=== PATIENT | female | born 1975 | race Caucasian/White ===

== ENCOUNTER 2021-08-18 23:44 | Observation (INO) | payer BC ==
[2021-08-19] MEDS ORDERED: NA CHLORIDE 0.9% 1,000 ML ONE (00:07)
[2021-08-19] MEDS ORDERED: MORPHINE 4 MG/ML SYR ONE (00:07)
[2021-08-19] MEDS ORDERED: ONDANSETRON 4 MG/2 ML VIAL ONE ×3 (00:07→07:10)
[2021-08-19] MEDS ORDERED: PIPERACIL/TAZO 3.375 GM VIAL IV ONE ×2 (00:32→08:39)
[2021-08-19] MEDS ORDERED: NA CHLORIDE 0.9% 100 ML ONE ×2 (00:33→08:39)
[2021-08-19 00:35] LABS: Absolute Lymphocytes (CBC) 4.3 K/uL (0.7-4.9); Hematocrit 36.6 % (36.0-45.0); Lymphocytes % 36.8 % (15.3-44.8); MPV 7.1 fL (7.6-11.3); RBC Red Blood Cell Count 4.53 M/uL (3.86-4.86)
[2021-08-19 00:44] LABS: Urine Specific Gravity/Preg 1.025 (1.005-1.030)
[2021-08-19 00:45] LABS: Albumin 3.5 g/dL (3.4-5.0); Bilirubin Total 0.3 mg/dL (0.2-1.0); Potassium 3.4 mmol/L (3.5-5.1); Protein, Total 7.3 g/dL (6.4-8.2)
[2021-08-19 00:48] LABS: Urine Bacteria <20 /HPF (<20); Urine RBC <5 /HPF (NONE SEEN)
[2021-08-19] MEDS ORDERED: HYDROMORPHONE HCL 0.5 MG/0.5 ML INJ ONE (00:53)
--- OUTSIDE RECORDS SUMMARY | 2021-08-19 01:02 | XMS REPORT | Continuity of Care Document ---
:1975 Author Organization [facility] t Address [address] [place] [address] [address]. [address] [place] [address] Care Team Providers Name Role Phone PCP, DOES NOT HAVE A Primary Care Physician Unavailable Jef Guerrier Attending Clinician Unavailable ANH Attending Clinician Unavailable Tato THOMPSON, Cam Attending Clinician Payers Payer Name Policy Type Policy Number Effective Date Expiration Date Sandra johnson [facility] [employer] [id number] 2016 00:00:00 SELECT Problems Condition Condition Condition Status Onset Resolution Last Treating Co mments Source Name Details Category Date Date Treatment Clinician Date No known No known Disease Unive rs active active ity of problems problems [facility] Allergies, Adverse Reactions, Alerts Allergy Allergy Status Severity Reaction(s) Onset Inactive Treating Comm ents Source Name Type Date Date Clinician NO KNOWN Drug Active Univers ALLERGIE Class ity of S [facility] Social History Social Habit Start Date Stop Date Quantity Comments Source History SDOH University o f Alcohol Frequency [facility] History SDOH University o f Alcohol Std [place] [facility] History SDOH University o f Alcohol Binge [facility] Exposure to 2021-07-27 2021-08-06 Not sure University of SARS-CoV-2 00:00:00 13:40:00 [facility] (event) [facility] Alcohol intake 2021-08-06 2021-08-06 Current drinker Unive rsity of 00:00:00 00:00:00 of alcohol [facility] (finding) Branch Alcohol Comment 2021-07-29 2021-07-29 occational Universit y of 00:00:00 00:00:00 [facility] Tobacco use and 2019-11-27 2019-11-27 Never used Universit y of exposure 00:00:00 00:00:00 [facility] Sex Ass[birth year] At [birth year] Universit y of 00:00:00 00:00:00 [facility] Smoking Status Start Date Stop Date Source Former smoker 2019-11-27 00:00:00 2019-11-27 00:00:00 Universi ty of [facility] Medications Ordered Filled Start Stop Current Ordering Indication Dosage Frequency Signature Comments Components Source Medication Medication Date Date Medication? Clinician (SIG) Name Name citalopram Yes 40mg Take 40 mg U nivers (CELEXA) 40 5-25 by mouth ity of mg tablet 15:56: daily. [address] Dexlansopra Yes Take by Un ronit zole 5-25 mouth. ity of (DEXILANT) 15:56: [place] 30 mg 42 Medical capsule Branch Levothyroxi Yes Take by Un ronit ne 5-25 mouth. ity of (TIROSINT) 15:56: [place] 125 mcg 42 Medical capsule Branch phentermine Yes 37.5mg Take 37.5 Univers 37.5 mg 5-25 mg by ity of tablet 15:56: mouth [place] 42 daily with Medical breakfast. Branch citalopram Yes 40mg Take 40 mg U nivers (CELEXA) 40 5-25 by mouth ity of mg tablet 15:56: daily. [address] Branch Dexlansopra Yes Take by Un ronit zole 5-25 mouth. ity of (DEXILANT) 15:56: [place] 30 mg 42 Medical capsule Branch Levothyroxi Yes Take by Un ronit ne 5-25 mouth. ity of (TIROSINT) 15:56: [place] 125 mcg 42 Medical capsule Branch phentermine Yes 37.5mg Take 37.5 Univers 37.5 mg 5-25 mg by ity of tablet 15:56: mouth [place] 42 daily with Medical breakfast. Branch medroxyPROG Yes [id number] 20mg Take 2 Univers ESTERone 5-25 tablets by ity o f (PROVERA) 00:00: mouth [place] 10 mg 00 daily. Medical tablet Branch medroxyPROG Yes [id number] 20mg Take 2 Univers ESTERone 5-25 tablets by ity o f (PROVERA) 00:00: mouth [place] 10 mg 00 daily. Medical tablet Branch miSOPROStoL 2021- No [id number] Take one Univers 200 mcg 5-25 08-06 tablet ity of tablet 00:00: 00:00 night [place] 00 :00 before Medical procedure, Branch then take one tablet morning of procedure miSOPROStoL 2021- No [id number] Take one Univers 200 mcg 5-25 08-06 tablet ity of tablet 00:00: 00:00 night [place] 00 :00 before Medical procedure, Branch then take one tablet morning of procedure Tirosint Tirosint Yes Sreekanth 1 capsule Common 3-02 [facility] 00:00: morning on an empty [facility] Vitamin D3 Vitamin D3 Yes Sreekanth 1 capsule Common 2-20 [facility] 00:00: [facility] Citalopram Citalopram Yes Sreekanth 1 tablet Common Hydrobromid Hydrobromid [facility] Spirit e e [facility] Immunizations Ordered Immunization Filled Immunization Date Status Commen ts Source Name Name Savannah Nuñez 2018-11-14 Completed [facility] 00:00:00 [facility] PNEUMAVAX 23 PNEUMAVAX 23 2018-04-04 Completed Common Spi rit 00:00:00 [facility] Vital Signs Vital Name Observation Time Observation Value Comments Source Systolic blood 2021-08-06 19:04:00 122 mm[Hg] Univer sity [facility] Diastolic blood 2021-08-06 19:04:00 82 mm[Hg] [facility] Heart rate 2021-08-06 19:04:00 93 /min [facility] Body temperature 2021-08-06 19:04:00 37.06 [facility] Body height 2021-08-06 19:04:00 157.5 cm [facility] Body weight 2021-08-06 19:04:00 73.936 kg [facility] BMI 2021-08-06 19:04:00 29.81 kg/m2 [facility] Procedures Procedure Date / Time Performed Performing Clinician Kina e POCT TEST 2021-08-06 00:00:00 Eunice Godwin [facility] Encounters Start End Encounter Admission Attending Care Care Encounter Source Date/Time Date/Time Type Type Clinicians Facility Department ID 2021-04-20 Outpatient Guerrier, STLMLC STLMLC Common 13:33:01 Sreekanth [id number] [facility] 2021-04-01 Outpatient Guerrier, STLMLC STLMLC [id number] Common 13:21:09 Sreekanth [id number] [facility] 2021-04-01 Outpatient Guerrier, STLMLC STLMLC Common 13:13:19 Sreekanth [id number] [facility] 2021-04-01 Outpatient Guerrier, STLMLC STLMLC Common 13:10:39 Sreekanth [id number] [facility] 2021-04-01 Outpatient Guerrier, STLMLC STLMLC [id number] Common 12:58:05 Sreekanth [id number] [facility] 2021-04-01 Outpatient Guerrier, STLMLC STLMLC Common 12:45:33 Sreekanth [id number] [facility] 2021-04-01 Outpatient Guerrier, STLMLC STLMLC [id number] Common 11:35:56 Sreekanth [id number] [facility] 2021-04-01 Outpatient Guerrier, STLMLC STLMLC [id number] Common 11:16:45 Sreekanth [id number] [facility] 2021-04-01 Outpatient Guerrier, STLMLC STLMLC [id number] Common 11:16:16 Sreekanth [id number] [facility] 2021-04-01 Outpatient Guerrier, STLMLC STLMLC [id number] Common 11:15:22 Sreekanth [id number] [facility] 2021-04-01 Outpatient Guerrier, STLMLC STLMLC [id number] Common 11:14:55 [facility] [id number] [facility] 2021-04-01 Outpatient Guerrier, STLMLC STLMLC [id number] Common 11:04:45 [facility] [id number] [facility] 2021-08-18 2021-08-[address] [facility] [id number] Univers 14:40:49 [facility]40[facility] 2021-08-[facility] 2021-08-06 Office Eunice Godwin [facility] [id number] Univers 13:45:00 14:51:14 Visit Earl HERNANDEZ [id number] aria Mckeon [id number] Akash HEARDIO [id number] [address] 2021-07-29 2021-07-[address] [facility] [id number] Univers 16:00:00 16:33:[facility] 2021-07-29 2021-07-29 ambulatory STLMLC STLMLC [id number] Common 00:00:00 00:00:00 [facility] 2021-07-20 2021-07-20 ambulatory STLMLC STLMLC [id number] Common 00:00:00 00:00:00 [facility] 2021-05-19 2021-05-19 ambulatory STLMLC STLMLC [id number] Common 00:00:00 00:00:00 [facility] 2021-04-21 2021-04-21 ambulatory STLMLC STLMLC [id number] Common 00:00:00 00:00:00 [facility] 2021-01-19 2021-01-19 ambulatory STLMLC STLMLC [id number] Common 00:00:00 00:00:00 [facility] 2020-12-19 2020-12-19 Outpatient STLMLC STLMLC [id number] Common 00:00:00 00:00:00 [facility] 2020-08-19 2020-08-19 Outpatient STLMLC STLMLC [id number] Common 00:00:00 00:00:00 [facility] 2020-08-07 2020-08-07 Outpatient STLMLC STLMLC [id number] Common 00:00:00 00:00:00 [facility] 2020-08-05 2020-08-05 Outpatient STLMLC STLMLC [id number] Common 00:00:00 00:00:00 [facility] 2020-07-04 2020-07-04 Outpatient STLMLC STLMLC [id number] Common 00:00:00 00:00:00 [facility] 2020-07-03 2020-07-03 Outpatient STLMLC STLMLC [id number] Common 00:00:00 00:00:00 [facility] 2020 2020 Outpatient STLMLC STLMLC [id number] Common 00:00:00 00:00:00 [facility] 2020-05-22 2020-05-22 Outpatient STLMLC STLMLC [id number] Common 00:00:00 00:00:00 [facility] 2019-10-11 2019-10-11 [facility] [id number] Common 16:39:00 16:39:00 [facility] [address] [facility] 2019-08-28 2019-08-28 [facility] [id number] Common 10:23:00 10:23:[address] [facility] 2019-08-20 2019-08-20 [facility] [id number] Common 11:12:00 11:12:[address] [facility] 2019-06-07 2019-06-07 [facility] [id number] Common 15:15:00 15:15:[address] [facility] 2019-05-28 2019-05-28 [facility] [id number] Common 08:10:00 08:10:[address] [facility] 2019-05-24 2019-05-24 [facility] [id number] Common 08:20:00 08:20:[address] [facility] 2019-05-23 2019-05-23 [facility] [id number] Common 13:26:00 13:26:[address] [facility] 2019-05-07 2019-05-07 [facility] [id number] Common 16:15:00 16:15:[address] [facility] 2019-04-11 2019-04-11 [facility] [id number] Common 14:51:00 14:51:[address] [facility] 2019-04-10 2019-04-10 [facility] [id number] Common 16:00:00 16:00:[address] [facility] 2019-01-31 2019-01-31 [facility] [id number] Common 10:10:00 10:10:[address] [facility] 2019-01-22 2019-01-22 [facility] [id number] Common 14:00:00 14:00:[address] [facility] 2019-01-16 2019-01-16 [facility] [id number] Common 10:08:00 10:08:[address] [facility] 2019-01-15 2019-01-15 [facility] [id number] Common 09:45:00 09:45:[address] [facility] 2019-01-09 2019-01-09 [facility] [id number] Common 08:40:00 08:40:[address] Family - [facility] 2018-11-14 2018-11-14 [facility] [id number] Common 15:15:00 15:15:[address] [facility] 2018-10-17 2018-10-17 [facility] [id number] Common 14:00:00 14:00:[address] [facility] 2018-09-15 2018-09-15 [facility] [id number] Common 10:30:00 10:30:[address] [facility] 2018-06-26 2018-06-26 [facility] [id number] Common 15:55:00 15:55:[address] [facility] 2018-06-26 2018-06-26 [facility] [id number] Common 13:45:00 13:45:[address] [facility] 2018-06-21 2018-06-21 [facility] [id number] Common 09:55:00 09:55:[address] [facility] 2018-06-01 2018-06-01 [facility] [id number] Common 08:40:00 08:40:[address] [facility] 2018-05-24 2018-05-24 [facility] [id number] Common 13:15:00 13:15:[address] [facility] 2018-04-26 2018-04-26 [facility] [id number] Common 14:15:00 14:15:[address] [facility] 2018-04-26 2018-04-26 [facility] [id number] Common 13:15:00 13:15:[address] [facility] 2018-04-04 2018-04-04 [facility] [id number] Common 15:45:00 15:45:[address] [facility] 2018-02-23 2018-02-23 [facility] [id number] Common 07:39:00 07:39:[address] [facility] 2017-12-01 2017-12-01 [facility] [id number] Common 15:45:00 15:45:[address] [facility] 2017-11-04 2017-11-04 [facility] [id number] Common 10:00:00 10:00:[address] [facility] 2017-10-05 2017-10-05 [facility] [id number] Common 15:45:00 15:45:[address] [facility] 2017-09-29 2017-09-29 [facility] [id number] Common 10:59:00 10:59:[address] [facility] 2017-09-06 2017-09-06 [facility] [id number] Common 15:15:00 15:15:[address] [facility] 2017-08-18 2017-08-18 [facility] [id number] Common 09:45:00 09:45:[address] [facility] Results Test Description Test Time Test Comments Results Result Comments Source POCT TEST 2021-08-06 19:02:00 Test Item Value Reference Range Interpretation Comme nts POCT PREG (test code = 1605) Negative On board controls acceptable with C Line (test code = 3574) Yes POCT PREG LOT # (test code = 3575) POCT PREG TEST DATE (test code = 3576) [id number] 19:02:00 Test Item Value Reference Range Interpretation Comments POCT PREG (test code = 1605) Negative On board controls acceptable with C Yes Line (test code = 3574) POCT PREG LOT # (test code = 3575) POCT PREG TEST DATE (test code = 3576) [facility] [place]
--- NOTE | 2021-08-19 01:14 | EDPHYS ---
Physician Documentation [facility] Name: Kamala Peace Age: 46 yrs Sex: Female : 1975 Arrival Date: 08/18/2021 Time: 23:47 Bed 19 Private MD: ED Physician Ye Mantilla HPI: 08/19 00:11 This 46 yrs old Female presents to ER via Ambulatory with complaints of Flank juaquin Pain. 00:11 The patient complains of pain in the left mid back. 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 - Social history:: Smoking status: Patient denies any tobacco usage or history of. Patient/guardian denies using alcohol. - Family history:: not pertinent. ROS: 08/19 00:11 Constitutional: Negative for fever, chills, and weight loss, Eyes: Negative for injury, juaquin pain, redness, and discharge, ENT: Negative for injury, pain, and discharge, Neck: Negative for injury, pain, and swelling, Cardiovascular: Negative for chest pain, palpitations, and edema, Respiratory: Negative for shortness of breath, cough, wheezing, and pleuritic chest pain, Back: Negative for injury and pain, : Negative for injury, bleeding, discharge, and swelling, MS/Extremity: Negative for injury and deformity, Skin: Negative for injury, rash, and discoloration, Neuro: Negative for headache, weakness, numbness, tingling, and seizure, Psych: Negative for depression, anxiety, suicide ideation, homicidal ideation, and hallucinations, Allergy/Immunology: Negative for hives, rash, and allergies, Endocrine: Negative for neck swelling, polydipsia, polyuria, polyphagia, and marked weight changes, Hematologic/Lymphatic: Negative for swollen nodes, abnormal bleeding, and unusual bruising. Abdomen/GI: Positive for abdominal pain, of the right upper quadrant. Exam: 00:11 Constitutional: This is a well developed, well nourished patient who is awake, alert, juaquin and in no acute distress. Head/Face: Normocephalic, atraumatic. Eyes: Pupils equal round and reactive to light, extra-ocular motions intact. Lids and lashes normal. Conjunctiva and sclera are non-icteric and not injected. Cornea within normal limits. Periorbital areas with no swelling, redness, or edema. ENT: Nares patent. No nasal discharge, no septal abnormalities noted. Tympanic membranes are normal and external auditory canals are clear. Oropharynx with no redness, swelling, or masses, exudates, or evidence of obstruction, uvula midline. Mucous membranes moist. Neck: Trachea midline, no thyromegaly or masses palpated, and no cervical lymphadenopathy. Supple, full range of motion without nuchal rigidity, or vertebral point tenderness. No Meningismus. Chest/axilla: Normal chest wall appearance and motion. Nontender with no deformity. No lesions are appreciated. Cardiovascular: Regular rate and rhythm with a normal S1 and S2. No gallops, murmurs, or rubs. Normal PMI, no JVD. No pulse deficits. Respiratory: Lungs have equal breath sounds bilaterally, clear to auscultation and percussion. No rales, rhonchi or wheezes noted. No increased work of breathing, no retractions or nasal flaring. Back: No spinal tenderness. No costovertebral tenderness. Full range of motion. Female : Normal external genitalia. Skin: Warm, dry with normal turgor. Normal color with no rashes, no lesions, and no evidence of cellulitis. MS/ Extremity: Pulses equal, no cyanosis. Neurovascular intact. Full, normal range of motion. Neuro: Awake and alert, GCS 15, oriented to person, place, time, and situation. Cranial nerves II-XII grossly intact. Motor strength 5/5 in all extremities. Sensory grossly intact. Cerebellar exam normal. Normal gait. Psych: Awake, alert, with orientation to person, place and time. Behavior, mood, and affect are within normal limits. 00:11 Abdomen/GI: Inspection: abdomen appears normal, Bowel sounds: normal, Palpation: abdomen is soft and non-tender. 00:11 Abdomen/GI: Palpation: moderate abdominal tenderness, in the right upper quadrant, Liver: no appreciated palpable abnormalities, Hernia: not appreciated. Vital Signs: 08/18 23:53 BP 113 / 87; Pulse 83; Resp 18; Temp 97.6(TE); Pulse Ox 100% on R/A; Weight 72.57 kg; ld1 Height 5 ft. 2 in. (157.48 cm); Pain 10; 08/19 00:56 BP 140 / 88; Pulse 92; Resp 17; Pulse Ox 100% on R/A; kd3 02:53 BP 111 / 77; Pulse 78; Resp 18; Pulse Ox 97% on R/A; kd3 04:21 BP 120 / 88; Pulse 85; Resp 17; Pulse Ox 100% ; kd3 06:30 BP 108 / 78; Pulse 69; Resp 17; Pulse Ox 98% on R/A; kd3 08/18 23:53 Body Mass Index 29.26 (72.57 kg, 157.48 cm) ld1 MDM: 00:02 Patient medically screened. juaquin 00:14 Differential diagnosis: diverticulitis, pancreatitis, appendicitis, bowel obstruction, juaquin cholecystitis, Cholelithiasis, diverticulitis, gastritis, gastroesophageal reflux disease, Hepatitis, pancreatitis, Peptic Ulcer Disease, Peritonitis, Ureterolithiasis, urinary tract infection. Data reviewed: vital signs, nurses notes, lab test result(s), drug level(s), electrolytes, hepatic panel, urinalysis, radiologic studies, ultrasound. Data interpreted: contact center associate: rate is 83 beats/min, rhythm is regular, Pulse oximetry: on room air is 100 %. Test interpretation: by ED physician or midlevel provider:. Counseling: I had a detailed discussion with the patient and/or guardian regarding: the historical points, exam findings, and any diagnostic results supporting the discharge/admit diagnosis, lab results, radiology results, the need for further work-up and treatment in the hospital. 08/18 23:56 Order name: CBC with Diff; Complete Time: : ld1 08/18 23:56 Order name: CMP; Complete Time: :08/18 23:56 Order name: Lipase; Complete Time: :08/18 23:56 Order name: Urine Microscopic Only; Complete Time: : ld1 08/19 00:33 Order name: Urine --Ancillary (enter results); Complete Time: : 08/19 00:51 Order name: Urine Culture EDAR 08/19 00:03 Order name: US Abdomen Limited [facility] 08/18 23:56 Order name: IV Saline Lock; Complete Time: 00:02 ld1 08/18 23:56 Order name: Labs collected and sent; Complete Time: 00:02 ld1 08/18 23:56 Order name: Urine Dipstick-Ancillary (obtain specimen); Complete Time: 00:37 ld1 Administered Medications: 00:02 Drug: NS 0.9% 1000 ml Route: IV; Rate: 1 bolus; Site: left antecubital; ld1 02:54 Follow up: Response: No adverse reaction; IV Status: Completed infusion kd3 00:02 Drug: Zofran (Ondansetron) 4 mg Route: IVP; Site: left antecubital; ld1 02:54 Follow up: Response: No adverse reaction kd3 00:02 Drug: morphine 4 mg Route: IVP; Infused Over: 4 mins; Site: left antecubital; ld1 02:54 Follow up: Response: Pain is decreased kd3 00:37 Drug: Zosyn (piperacillin-tazobactam) 3.375 grams Route: IVPB; Infused Over: 60 mins; kd3 Site: left antecubital; 02:54 Follow up: Response: No adverse reaction; IV Status: Completed infusion kd3 01:10 CANCELLED (Duplicate Order): Zofran (Ondansetron) 4 mg IVP once; over 2 minutes kd3 01:10 Drug: Zofran (Ondansetron) 4 mg Route: IVP; Site: left antecubital; kd3 02:54 Follow up: Response: No adverse reaction kd3 01:10 Drug: Dilaudid (HYDROmorphone) 1 mg Route: IVP; Site: left antecubital; kd3 02:55 Follow up: Response: No adverse reaction; Pain is decreased kd3 01:11 CANCELLED (Duplicate Order): Dilaudid (HYDROmorphone) 1 mg IVP once kd3 01:53 Drug: Lactated Ringers Solution 1000 ml Route: IV; Rate: 150 ml/hr; Site: left kd3 antecubital; 02:54 Follow up: Response: No adverse reaction; IV Status: Completed infusion kd3 Disposition Summary: 08/19/21 01:13 Hospitalization Ordered Hospitalization Status: Observation [facility] Provider: Domo Hanks cha Condition: Fair juaquin Problem: new juaquin Symptoms: have improved juaquin Bed/Room Type: Standard juaquin [facility]08/19/21 11:01[facility] bd Room Assignment: 270-(08/19/21 11:01) bd Diagnosis - Epigastric abdominal tenderness juaquin - Other cholelithiasis with obstruction juaquin Forms: - Medication Reconciliation Form juaquin - SBAR form juaquin 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 juaquin kd3 01:11 01:09 Dilaudid (HYDROmorphone) 1 mg IVP once ordered. juaquin kd3 01:21 01:13 Telemetry/MedSurg (observation) juaquin cg 01:21 01:13 juaquin cg 10:37 01:21 [facility] ER HOLD cg dw 10:37 01:21 ERHOLD- cg dw 11:01 10:37 Telemetry/MedSurg (observation) dw bd 11:01 10:37 218 dw bd
--- NOTE | 2021-08-19 01:14 | ER ---
Nurse's Notes [facility] Name: Kamala Peace Age: 46 yrs Sex: Female : 1975 Arrival Date: 08/18/2021 Time: 23:47 Bed 19 Private MD: Diagnosis: Epigastric abdominal tenderness;Other cholelithiasis with obstruction Presentation: 08/18 23:53 Chief complaint: Patient states: RUQ pain X 2 hours. Coronavirus screen: At this time, ld1 the client does not indicate any symptoms associated with coronavirus-19. Ebola Screen: No symptoms or risks identified at this time. Initial Sepsis Screen: Does the patient meet any 2 criteria? No. Patient's initial sepsis screen is negative. Does the patient have a suspected source of infection? No. Patient's initial sepsis screen is negative. Risk Assessment: Do you want to hurt yourself or someone else? Patient reports no desire to harm self or others. Onset of symptoms was August 18, 2021. 23:53 Method Of Arrival: Ambulatory ld1 23:53 Acuity: FANNY 3 ld1 Triage Assessment: 23:54 General: Appears in no apparent distress. comfortable, Behavior is calm, cooperative, ld1 appropriate for age. Pain: Complains of pain in right upper quadrant Pain does not radiate. Pain currently is 10 out of 10 on a pain scale. EENT: No signs and/or symptoms were reported regarding the EENT system. Neuro: Level of Consciousness is awake, alert, obeys commands, Oriented to person, place, time, situation. Cardiovascular: Capillary refill < 3 seconds Patient's skin is warm and dry. Respiratory: Airway is patent Respiratory effort is even, unlabored. GI: Abdomen is flat, non-distended. : No signs and/or symptoms were reported regarding the genitourinary system. 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 - Social history:: Smoking status: Patient denies any tobacco usage or history of. Patient/guardian denies using alcohol. - Family history:: not pertinent. Screenin/15 00:57 Abuse screen: Denies threats or abuse. Denies injuries from another. Nutritional kd3 screening: No deficits noted. Tuberculosis screening: No symptoms or risk factors identified. Fall Risk IV access (20 points). Assessment: 00:57 General: Appears uncomfortable, Behavior is calm, cooperative. Neuro: Level of kd3 Consciousness is awake, alert, obeys commands. Cardiovascular: Patient's skin is warm and dry. Respiratory: Airway is patent Trachea midline Respiratory effort is even, unlabored, Respiratory pattern is regular, symmetrical. Vital Signs: 08/18 23:53 BP 113 / 87; Pulse 83; Resp 18; Temp 97.6(TE); Pulse Ox 100% on R/A; Weight 72.57 kg; ld1 Height 5 ft. 2 in. (157.48 cm); Pain 10/10; 08/19 00:56 BP 140 / 88; Pulse 92; Resp 17; Pulse Ox 100% on R/A; kd3 02:53 BP 111 / 77; Pulse 78; Resp 18; Pulse Ox 97% on R/A; kd3 04:21 BP 120 / 88; Pulse 85; Resp 17; Pulse Ox 100% ; kd3 06:30 BP 108 / 78; Pulse 69; Resp 17; Pulse Ox 98% on R/A; kd3 08/18 23:53 Body Mass Index 29.26 (72.57 kg, 157.48 cm) ld1 ED Course: 08/18 23:47 Patient arrived in ED. ja2 23:54 Triage completed. ld1 23:54 Arm band placed on right wrist. ld1 08/19 00:02 Ye Mantilla MD is Attending Physician. juaquin 00:03 Inserted saline lock: 20 gauge in left antecubital area, using aseptic technique. Blood ld1 collected. 00:08 Yadira Garcia, JONATHAN is Primary Nurse. kd3 00:31 US Abdomen Limited In Process Unspecified. EDMS 00:58 Patient has correct armband on for positive identification. kd3 01:12 Domo Hanks MD is Hospitalizing Provider. juaquin 02:53 No provider procedures requiring assistance completed. kd3 06:30 Patient admitted, IV remains in place. kd3 Administered Medications: 00:02 Drug: NS 0.9% 1000 ml Route: IV; Rate: 1 bolus; Site: left antecubital; ld1 02:54 Follow up: Response: No adverse reaction; IV Status: Completed infusion kd3 00:02 Drug: Zofran (Ondansetron) 4 mg Route: IVP; Site: left antecubital; ld1 02:54 Follow up: Response: No adverse reaction kd3 00:02 Drug: morphine 4 mg Route: IVP; Infused Over: 4 mins; Site: left antecubital; ld1 02:54 Follow up: Response: Pain is decreased kd3 00:37 Drug: Zosyn (piperacillin-tazobactam) 3.375 grams Route: IVPB; Infused Over: 60 mins; kd3 Site: left antecubital; 02:54 Follow up: Response: No adverse reaction; IV Status: Completed infusion kd3 01:10 CANCELLED (Duplicate Order): Zofran (Ondansetron) 4 mg IVP once; over 2 minutes kd3 01:10 Drug: Zofran (Ondansetron) 4 mg Route: IVP; Site: left antecubital; kd3 02:54 Follow up: Response: No adverse reaction kd3 01:10 Drug: Dilaudid (HYDROmorphone) 1 mg Route: IVP; Site: left antecubital; kd3 02:55 Follow up: Response: No adverse reaction; Pain is decreased kd3 01:11 CANCELLED (Duplicate Order): Dilaudid (HYDROmorphone) 1 mg IVP once kd3 01:53 Drug: Lactated Ringers Solution 1000 ml Route: IV; Rate: 150 ml/hr; Site: left kd3 antecubital; 02:54 Follow up: Response: No adverse reaction; IV Status: Completed infusion kd3 Medication: 00:58 VIS not applicable for this client. kd3 Outcome: 01:13 Decision to Hospitalize by Provider. [facility] 06:29 Admitted to ER Hold. Please see [facility] for further documentation. kd3 06:29 Condition: stable 06:29 Discharge instructions given to patient, Instructed on the need for admit, Demonstrated understanding of instructions. 11:34 Patient left the ED. jh6 Signatures: Dispatcher [employer] EDYe Andres MD MD cha Dibbern, Lauren, RN RN ld1 Mellissa Jimenez Kyli, RN RN kd3 Patt Castellanos RN RN jh6
[2021-08-19] MEDS ORDERED: Ringers Lactate 1,000 ML IV ONE (01:50)
[2021-08-19] MEDS ORDERED: ACETAMINOPHEN 325 MG TABLET PO PRN (05:04)
[2021-08-19] MEDS ORDERED: Ringers Lactate 1,000 ML IV SCH (05:04)
[2021-08-19] MEDS ORDERED: MORPHINE 4 MG/ML SYR IV PRN (05:04)
[2021-08-19] MEDS ORDERED: SODIUM CHLORIDE 0.9% 10ML INJ IV PRN (05:04)
[2021-08-19] MEDS ORDERED: ONDANSETRON 4 MG/2 ML VIAL IV PRN (05:04)
[2021-08-19 05:14] VITALS: BMI 29.0
[2021-08-19] MEDS ORDERED: dexAMETHasone 10 MG/ML VIAL ONE (07:09)
[2021-08-19] MEDS ORDERED: FENTANYL CITR 100 MCG/2 ML ONE (07:09)
[2021-08-19] MEDS ORDERED: LIDOCAINE 1% MPF 5 ML VIAL ONE (07:09)
[2021-08-19] MEDS ORDERED: MIDAZOLAM HCL 2 MG/2 ML INJ ONE (07:09)
[2021-08-19] MEDS ORDERED: ROCURONIUM 50 MG/5 ML VIAL IV ONE (07:09)
[2021-08-19] MEDS ORDERED: propofoL 200 MG/20 ML VIAL IV ONE (07:09)
[2021-08-19] MEDS ORDERED: Mastisol Adhesive Liq ONE (07:36)
[2021-08-19] MEDS ORDERED: CODEINE 30MG/APAP 300MG TAB PO PRN (07:48)
[2021-08-19] MEDS ORDERED: BELLADONNA/PB 5 ML/ORAL SYRINGE PO PRN (08:02)
[2021-08-19] MEDS ORDERED: MAGNES/ALUMIN/SIMET 30ML UCUP PO PRN ×2 (08:02→08:10)
[2021-08-19] MEDS ORDERED: LIDOCAINE VISCOUS 2% SOLN 15 ML UDC PO PRN ×2 (08:03→08:10)
[2021-08-19] MEDS ORDERED: DIPHENHYDRAMINE 12.5MG/5ML LIQ PO PRN (08:11)
--- NOTE | 2021-08-19 08:36 | P.HP ---
Date of Service: 08/19/21 Chief complaint: Abdominal pain History of present Illness: Patient is a 46-year-old female presented to the emergency room with acute onset of epigastric right and upper quadrant abdominal pain radiating to the back. Patient has nausea but no vomiting. Patient does have bloating, belching and heartburn. Pain is postprandial in nature. Patient denies sore throat, runny nose, cough, headaches, dizziness, chest pain, fever or chills. This is the first episode of this type of pain for the patient. Please note that the patient is on phentermine for weight loss. Review of systems: Otherwise unremarkable Past medical history: Maida's disease Past surgical history: Bilateral tubal ligation Allergies: None Social history: Patient vapes and occasionally drinks alcohol Family history: Noncontributory Vital signs: Stable, afebrile Physical exam: Awake, alert and oriented x3 Head and neck: Cranial nerves II through XII grossly within normal limits, no neck masses, no JVD, throat clear and neck supple with no evidence of icterus Chest: Clear Heart: S1-S2 Abdomen: Soft, nondistended, positive bowel sound, no tenderness but minimal discomfort in the right upper quadrant and no signs of peritonitis Extremity: Neurovascular intact, nontender Neuro: Nonfocal Diagnostic data: Ultrasound shows cholelithiasis, white count is 11.6, LFTs are within normal limits Assessment: Likely acute and chronic cholecystitis and cholelithiasis in a patient who is on phentermine Plan/recommendation: As patient would be high risk for surgery because of the phentermine, we will try medical management with antibiotics and pain medicine for the next week or 2 and then proceed with cholecystectomy when it is safer. Patient will be admitted for IV antibiotics and parenteral pain management. When the pain is controlled and patient is tolerating diet patient will be discharged to home. Plan of care discussed with Dr. Byers, the anesthesiologist, as well as the patient. CC:
[2021-08-19] MEDS ORDERED: PANTOPRAZOLE 40 MG INJ ONE (08:39)
[2021-08-19] MEDS ORDERED: PIPER TAZO 3.375 GM in NA CHLORIDE 0.9% 100 ML IV SCH (09:00)
[2021-08-19] MEDS ORDERED: PANTOPRAZOLE 40 MG INJ IVP SCH (09:00)
[2021-08-19 12:12] VITALS: O2SAT 98
[2021-08-19 12:20] VITALS: BP 134/75; TEMP 97.8
--- NOTE | 2021-08-19 13:08 | RAD REPORT ---
EXAM DESCRIPTION: US - Abdomen Exam Limited - 08/19/2021 1:34 am CLINICAL HISTORY: ABD PAIN. COMPARISON: None. TECHNIQUE: Ultrasound of the gallbladder with Doppler flow imaging was obtained. FINDINGS: Gallbladder: Cholelithiasis. No gallbladder wall thickening. No focal tenderness over the gallbladder. No pericholecystic fluid is visualized. Bile ducts: No dilatation of the intrahepatic bile ducts. The common bile duct measures 0.4 cm in ekaterina meter at the leia hepatis. Incidentally noted increased hepatic echogenicity with typical sparing adjacent to the gallbladder. IMPRESSION: 1. Cholelithiasis with no gallbladder wall thickening. 2. Hepatic steatosis. Electronically signed by: Tracy Whittaker MD 08/19/2021 12:55 AM CDT Due to temporary technical issues with the PACS/Fluency reporting system, reports are being signed by the in house radiologist without review as a courtesy to ensure prompt reporting. The interpreting r adiologist is fully responsible for the content of the report.
--- NOTE | 2021-08-19 14:07 | P.DS ---
Admission Date: 08/19/21 Discharge Date: 08/19/21 Disposition: ROUTINE DISCHARGE Discharge Condition: GOOD Reason for Admission: Abdominal pain secondary to cholelithiasis and cholecystitis Brief History of Present Illness: Patient is a 46-year-old female who is admitted with abdominal pain. Work-up revealed cholecystitis and cholelithiasis. Hospital Course: Patient is a 46-year-old female with cholecystitis and cholelithiasis. Patient has been on Phenertan for weight loss. After discussion with Dr. Byers, our anesthesiologist, it was decided that it would be unsafe to proceed with a cholecystectomy at this time. Patient will be treated with medical management. Patient has to stop her weight loss medications for at least 10 to 14 days for a semielective cholecystectomy. Patient was given IV antibiotics and pain medication with good results. Currently, the patient is asymptomatic. Therefore, patient will be discharged home. Patient will follow up with me in 1 to 2 weeks to schedule an outpatient cholecystectomy. Discharge instructions and medications provided. Vital Signs/Physical Exam: Temp Pulse Resp BP Pulse Ox 97.8 F 74 17 134/75 100 08/19/21 12:00 08/19/21 12:00 08/19/21 12:00 08/19/21 12:00 08/19/21 12:00 Laboratory Data at Discharge: WBC 11.6 K/uL (4.3-10.9) H 08/18/21 23:59 Hgb 11.6 g/dL (12.0-15.0) L 08/18/21 23:59 Hct 36.6 % (36.0-45.0) 08/18/21 23:59 Plt Count 532 K/uL (152-406) H 08/18/21 23:59 Sodium 138 mmol/L (136-145) 08/18/21 23:59 Potassium 3.4 mmol/L (3.5-5.1) L 08/18/21 23:59 BUN 6 mg/dL (7-18) L 08/18/21 23:59 Creatinine 0.88 mg/dL (0.55-1.3) 08/18/21 23:59 Glucose 121 mg/dL (74-106) H 08/18/21 23:59 Total Bilirubin 0.3 mg/dL (0.2-1.0) 08/18/21 23:59 AST 14 U/L (15-37) L 08/18/21 23:59 ALT 22 U/L (12-78) 08/18/21 23:59 Alkaline Phosphatase 87 U/L (45-117) 08/18/21 23:59 Lipase 260 U/L (73-393) 08/18/21 23:59 Home Medications: NK [No Home Meds] 08/19/21 Physician Discharge Instructions: Activity as tolerated Augmentin, Tylenol 3 and GI cocktail have been called into patient's pharmacy Follow-up my office 1-2 weeks Diet: Low-fat Activity: Ad beverly Followup: Sreekanth Guerrier, DO [Primary Care Provider] - Domo Hanks MD [ACTIVE - CAN ADMIT] - 1-2 Weeks
== END 2021-08-19 14:40 | disposition home or self-care (01) ==
LOC: ER 23:44 → ERHOLD 08-19 01:20 → 2ND-WC 08-19 11:22
PROVIDERS: ADMIT Surgery; ATTEND Surgery
DX: K80.10 Calculus of gallbladder with chronic cholecystitis without obstruction (principal); E06.3 Autoimmune thyroiditis; F17.290 Nicotine dependence, other tobacco product, uncomplicated; Z79.899 Other long term (current) drug therapy; Z98.51 Tubal ligation status; Z28.310 Unvaccinated for COVID-19
CPT/HCPCS: 96365; 96361; 87088; 85025; 87086; 36415; 81025; 81015; 83690; 80053; 76705; 96375; 99285; 96366; J2543 ×3; C9113 ×2; J1170; J7120; J7030; J2405 ×2; G0378 ×2; J1100; J2250; J2704; J3010

== ENCOUNTER 2021-09-09 07:17 | Day surgery (SDC) | payer BC ==
[2021-09-08 15:46] LABS: Absolute Lymphocytes (CBC) 2.7 K/uL (0.7-4.9); Hematocrit 35.2 % (36.0-45.0); Lymphocytes % 28.3 % (15.3-44.8); MCV 78.3 fL (80-100)
[2021-09-08 16:02] LABS: ALT/SGPT 26 U/L (12-78); AST/SGOT 16 U/L (15-37); Albumin 3.8 g/dL (3.4-5.0); Alkaline Phosphatase 86 U/L (45-117); Amylase 46 U/L (25-115); BUN Blood Urea Nitrogen 8 mg/dL (7-18); Bicarbonate 28 mmol/L (21-32); Bilirubin Total 0.3 mg/dL (0.2-1.0); Glomerular Filtration Rate 100 ml/min (=/>90); Glucose Level 93 mg/dL (74-106); Potassium 3.6 mmol/L (3.5-5.1); Protein, Total 7.6 g/dL (6.4-8.2); Sodium Level 138 mmol/L (136-145)
[2021-09-08 16:03] LABS: Bilirubin Direct < 0.1 mg/dL (0-0.2)
[2021-09-08 16:25] LABS: SARS-CoV-2 Antigen Rapid Res Negative (Negative)
[2021-09-09] MEDS ORDERED: CEFOXITIN SODIUM 1 GM/VIAL ONE (07:45)
[2021-09-09] MEDS ORDERED: Ringers Lactate 1,000 ML IV ONE (07:45)
[2021-09-09 08:02] VITALS: O2SAT 100
[2021-09-09] MEDS ORDERED: propofoL 200 MG/20 ML VIAL IV ONE (08:04)
[2021-09-09] MEDS ORDERED: LIDOCAINE 2% MPF 5 ML VIAL ONE (08:04)
[2021-09-09] MEDS ORDERED: dexAMETHasone 10 MG/ML VIAL ONE (08:04)
[2021-09-09] MEDS ORDERED: ONDANSETRON 4 MG/2 ML VIAL ONE (08:04)
[2021-09-09] MEDS ORDERED: FENTANYL CITR 100 MCG/2 ML ONE (08:04)
[2021-09-09] MEDS ORDERED: ROCURONIUM 50 MG/5 ML VIAL IV ONE (08:04)
[2021-09-09] MEDS ORDERED: MIDAZOLAM HCL 2 MG/2 ML INJ ONE (08:04)
[2021-09-09] MEDS ORDERED: BUPIVACAINE 0.5% Inj,MDV 50 mL VIAL ONE (08:47)
[2021-09-09] MEDS ORDERED: GLYCOPYRROLATE 0.2 MG/ML SYR ONE (09:38)
[2021-09-09] MEDS ORDERED: NEOSTIGMINE 1 MG/ML -10 ML VIAL ONE (09:38)
[2021-09-09] MEDS ORDERED: KETOROLAC 30 MG/ML INJ ONE (09:38)
--- NOTE | 2021-09-09 09:45 | P.OP ---
Date of Service: 09/09/21 Preop diagnosis: Chronic cholecystitis and cholelithiasis Postop diagnosis: Same Procedure performed: Laparoscopic cholecystectomy Surgeon: Domo Hanks MD [place] Cutter: Phill PEREZ Estimated blood loss: Minimal Specimen: Gallbladder Findings: As above Anesthesia: General Complications: None Drains: None Fluids and blood products: Nonapplicable Disposition: Recovery room Operative note: Patient brought to the OR and placed in the supine position. General anesthesia begun. Patient prepped and draped in the usual sterile fashion. Marcaine 0.5% infiltrated locally. 15 blade used to make a 1 cm supraumbilical midline incision. Subcutaneous tissue divided and fascia identified and divided. #1 Vicryl stay suture placed. Peritoneal cavity entered with sharp and blunt dissection. 12 mm trocar placed into the peritoneal cavity under direct vision. Pneumoperitoneum established. 3 5 mm trochars placed1 in the epigastric region just to the right of midline, and 2 in the right subcostal region. Laparoscopy revealed chronic inflammation of the gallbladder. Fundus identified and retracted superiorly. Infundibulum identified and retracted inferolaterally. Cystic duct and cystic artery clearly identified with blunt dissection. Clips placed and both structures divided. Cautery used to remove the gallbladder from the liver bed. Gallbladder retrieved through the umbilicus via Endo Catch bag. Gallbladder sent to pathology as specimen. Right upper quadrant irrigated effluent clear. No ev idence of bleeding or bile leakage appreciated. All trochars removed under direct vision. Stay sutures tied to each other to reapproximate the fascial defect. Subcutaneous wounds irrigated and bleeding controlled with cautery. 3- 0 chromic used to approximate subcutaneous tissue and close skin. Sterile dressing applied. Patient awakened and taken to recovery room in good general condition. CC: Dr. Guerrier's office
[2021-09-09] MEDS ORDERED: Mastisol Adhesive Liq ONE (09:53)
[2021-09-09] MEDS: MORPHINE 4 MG/ML SYR ONE ×2 (10:14→10:25)
[2021-09-09] MEDS ORDERED: CODEINE 30MG/APAP 300MG TAB ONE (11:11)
[2021-09-09 11:59] VITALS: BP 109/72; TEMP 96.5
== END 2021-09-09 11:44 | disposition home or self-care (01) ==
LOC: OR 07:17
PROVIDERS: ATTEND Surgery
PROC: 0FT44ZZ Resection of Gallbladder, Percutaneous Endoscopic Approach (ICD-10-PCS; principal; 2021-09-09 09:00)
DX: K80.10 Calculus of gallbladder with chronic cholecystitis without obstruction (principal); Z20.822 Contact with and (suspected) exposure to COVID-19
CPT/HCPCS: 85025; 80048; 36415; 82150; 84703; 80076; 88304; 87811; 47562; J2704; J2710; J2250; J3010; J1100; J7120; J0694; J2405